=== PATIENT | male | born 1950 | race Caucasian/White ===

== ENCOUNTER 2021-08-18 13:44 | Inpatient (IN) ==
[2021-08-18] MEDS ORDERED: Ondansetron 4 MG/2 ML VIAL IVP PRN (18:17)
[2021-08-18] MEDS ORDERED: Acetaminophen 325 MG TABLET PO PRN (18:17)
[2021-08-18] MEDS ORDERED: Naloxone 0.4 MG/ML INJ IVP PRN (18:17)
[2021-08-18] MEDS: 0.9 % Sodium Chloride 1,000 ML IVC SCH (21:53)
[2021-08-18] MEDS: Ipratropium/Albuterol Neb 3 ML IH SCH (22:00)
[2021-08-18 22:23] LABS: Bilirubin,Urine Negative (Negative); Blood,Urine Large (Negative); Clarity,Urine Clear (Clear); Color,Urine Light-Yellow (Yellow); Glucose,Urine (UA) Normal (Normal); Ketones,Urine 40 mg/dL (Negative); Leukocyte Esterase,Urine Negative (Negative); Mucus,Urine Few per lpf (None-Few); Nitrite,Urine Negative (Negative); PH,Urine 5.5 pH Units (5.0-8.0); Protein,Urine 30 mg/dL (Neg-Trace); Specific Gravity,Urine > 1.030 (1.010-1.025); Squamous Epithelial Cell,Urine Few per hpf (None-Few); Transitional Epi Cells,Urine Few per hpf (None-Few); Urobilinogen,Urine Normal (Normal); WBC,Urine 0-3 per hpf (0-3)
[2021-08-18 22:44] LABS: Magnesium 1.9 mg/dL (1.6-2.6); Phosphorous 2.1 mg/dL (2.7-4.5)
[2021-08-18 22:46] LABS: Troponin I < 0.03 ng/mL (< 0.04)
[2021-08-18 23:09] LABS: Folate 7.6 ng/mL (3.0-16.0)
[2021-08-19] MEDS: MethylPREDNISolone 40 MG/ML VIAL IVP SCH ×3 (00:49→17:18)
[2021-08-19] MEDS: Piperacillin/Tazobactam 3.375 GM in 0.9 % Sodium Chloride Mini Bag 100 ML IVPB SCH ×3 (00:49→16:20)
[2021-08-19] MEDS: Ipratropium/Albuterol Neb 3 ML IH SCH ×4 (03:55→20:38)
[2021-08-19 04:58] LABS: Eosinophils % 0.1 %; Hemoglobin 7.6 g/dL (12.9-16.9)
[2021-08-19 05:00] LABS: Basophils % 0.1 %; Hematocrit 25.2 % (37.5-50.1); Immature Granulocytes % 0.4 % (0-4); Immature Platelets 4.4 % (1.1-6.1); Lymphocytes # 0.8 K/mcL (0.6-4.6); Lymphocytes % 9.7 %; Mean Corpuscular HGB Conc 30.2 g/dL (31.6-35.5); Mean Corpuscular Hemoglobin 22.2 pg (28.0-33.3); Mean Corpuscular Volume 73.7 fL (83.0-100.0); Mean Platelet Volume 10.9 fL (9.4-12.4); Monocytes # 0.1 K/mcL (0.0-1.3); Monocytes % 1.7 %; Neutrophils # 7.1 K/mcL (1.6-8.9); Platelet Count 185 K/mcL (140-400); Red Blood Count 3.42 M/mcL (4.19-5.50); White Blood Count 8.1 K/mcL (4.3-11.1)
[2021-08-19 05:02] LABS: Platelet Estimate Normal (Normal)
[2021-08-19 05:03] LABS: Large Platelets Present (Not Present)
[2021-08-19 05:20] LABS: Alanine Aminotransferase 6 Units/L (7-52); Albumin 2.7 g/dL (3.5-5.7); Albumin/Globulin Ratio 0.9 (1.1-2.2); Alkaline Phosphatase 43 Units/L (34-104); Aspartate Amino Transferase 15 Units/L (13-39); BUN/Creatinine Ratio 37 (6-26); Bilirubin,Total 0.3 mg/dL (0.3-1.0); Blood Urea Nitrogen 15 mg/dL (8-23); Calcium 7.8 mg/dL (8.6-10.3); Carbon Dioxide 23 mEq/L (23-29); Chloride 107 mEq/L (98-107); Globulin 3.1 g/dL (2.4-3.5); Glucose 66 mg/dL (70-105); Osmolality,Calculated 291 (280-300); Potassium 3.3 mEq/L (3.5-5.1); Sodium 141 mEq/L (136-145); Total Protein 5.8 g/dL (6.4-8.9); eGFR For African Americans > 60 (> 60); eGFR For Non-African Americans > 60 (> 60)
[2021-08-19] MEDS ORDERED: *HR* Dextrose 50 % in Water (Syg) 50 ML SYRINGE IVP PRN (05:48)
[2021-08-19] MEDS ORDERED: Dextrose Gel 15 GM/37.5 ML TUBE PO PRN ×2 (05:48)
[2021-08-19] MEDS ORDERED: D5% in Water 1,000 ML IVC PRN (05:48)
[2021-08-19] MEDS: *HR* Heparin 5,000 UNIT/ML VIAL SQ SCH ×2 (06:04→17:18)
[2021-08-19] MEDS ORDERED: Potassium Phosphate 44 MEQ in 0.9 % Sodium Chloride 250 ML IVPB ONE (07:10)
[2021-08-19] MEDS: Nicotine 21 MG PATCH.TD24 TD SCH (09:52)
[2021-08-19] MEDS: Pantoprazole 40 MG VIAL IVP SCH (09:53)
[2021-08-19 11:36] LABS: Lipase 7 Units/L (11-82)
[2021-08-19] MEDS: 0.9 % Sodium Chloride 1,000 ML IVC SCH (13:35)
[2021-08-19] MEDS ORDERED: Cyanocobalamin (B-12) 1,000 MCG/ML VIAL SQ ONE (14:31)
[2021-08-20] MEDS: Piperacillin/Tazobactam 3.375 GM in 0.9 % Sodium Chloride Mini Bag 100 ML IVPB SCH ×3 (00:53→16:49)
[2021-08-20] MEDS: Ipratropium/Albuterol Neb 3 ML IH SCH ×4 (04:12→20:28)
[2021-08-20] MEDS: *HR* Heparin 5,000 UNIT/ML VIAL SQ SCH (05:11)
[2021-08-20] MEDS: MethylPREDNISolone 40 MG/ML VIAL IVP SCH (05:12)
[2021-08-20 05:21] LABS: Basophils % 0.2 %; Monocytes % 3.3 %
[2021-08-20 05:24] LABS: Hematocrit 22.2 % (37.5-50.1); Hemoglobin 6.7 g/dL (12.9-16.9); Immature Granulocytes % 0.7 % (0-4); Immature Platelets 5.1 % (1.1-6.1); Lymphocytes # 1.4 K/mcL (0.6-4.6); Lymphocytes % 16.5 %; Mean Corpuscular HGB Conc 30.2 g/dL (31.6-35.5); Monocytes # 0.3 K/mcL (0.0-1.3); Platelet Count 194 K/mcL (140-400); Red Blood Count 3.04 M/mcL (4.19-5.50); Red Cell Distribution Width 19.1 % (11.5-14.5); Segmented Neutrophils % 79.3 %; White Blood Count 8.3 K/mcL (4.3-11.1)
[2021-08-20 05:29] LABS: Neutrophils # 6.6 K/mcL (1.6-8.9)
[2021-08-20 05:38] LABS: BUN/Creatinine Ratio 38 (6-26); Blood Urea Nitrogen 20 mg/dL (8-23); Carbon Dioxide 27 mEq/L (23-29); Chloride 111 mEq/L (98-107); Glucose 179 mg/dL (70-105); Osmolality,Calculated 305 (280-300); Potassium 3.3 mEq/L (3.5-5.1); Sodium 144 mEq/L (136-145); eGFR For African Americans > 60 (> 60); eGFR For Non-African Americans > 60 (> 60)
[2021-08-20 05:45] LABS: Anisocytosis 1+ (Not Present); Microcytosis Present (Not Present); Poikilocytosis 1+ (Not Present)
[2021-08-20 05:46] LABS: Platelet Estimate Normal (Normal)
[2021-08-20] MEDS ORDERED: Potassium Phosphate 44 MEQ in 0.9 % Sodium Chloride 250 ML IVPB ONE (07:07)
[2021-08-20] MEDS ORDERED: 0.9 % Sodium Chloride 250 ML IVC SCH (07:15)
[2021-08-20] MEDS: Nicotine 21 MG PATCH.TD24 TD SCH (10:44)
[2021-08-20] MEDS: Pantoprazole 40 MG VIAL IVP SCH ×2 (10:44→18:56)
[2021-08-20 14:22] LABS: Transferrin 170 mg/dL (200-400)
[2021-08-20 19:04] LABS: Hematocrit 27.9 % (37.5-50.1); Hemoglobin 8.4 g/dL (12.9-16.9)
[2021-08-20 19:21] LABS: Iron 12 mcg/dL (65-175)
[2021-08-21] MEDS: Piperacillin/Tazobactam 3.375 GM in 0.9 % Sodium Chloride Mini Bag 100 ML IVPB SCH ×2 (00:12→07:49)
[2021-08-21] MEDS ORDERED: Hyaluronidase 200 UNIT in 0.9 % Sodium Chloride 10 ML SQ ONE (00:16)
[2021-08-21] MEDS: Ipratropium/Albuterol Neb 3 ML IH SCH ×3 (04:15→16:39)
[2021-08-21] MEDS: Pantoprazole 40 MG VIAL IVP SCH (06:02)
[2021-08-21 06:42] LABS: Basophils % 0.2 %; Hematocrit 27.5 % (37.5-50.1); Hemoglobin 8.6 g/dL (12.9-16.9); Immature Granulocytes % 0.9 % (0-4); Lymphocytes # 1.9 K/mcL (0.6-4.6); Lymphocytes % 13.3 %; Mean Corpuscular HGB Conc 31.3 g/dL (31.6-35.5); Mean Corpuscular Hemoglobin 23.8 pg (28.0-33.3); Mean Corpuscular Volume 76.2 fL (83.0-100.0); Mean Platelet Volume 10.1 fL (9.4-12.4); Monocytes # 0.7 K/mcL (0.0-1.3); Platelet Count 204 K/mcL (140-400); Red Blood Count 3.61 M/mcL (4.19-5.50); Segmented Neutrophils % 80.6 %
[2021-08-21 06:43] LABS: Neutrophils # 11.4 K/mcL (1.6-8.9); White Blood Count 14.1 K/mcL (4.3-11.1)
[2021-08-21 07:19] LABS: BUN/Creatinine Ratio 33 (6-26); Blood Urea Nitrogen 16 mg/dL (8-23); Calcium 8.1 mg/dL (8.6-10.3); Carbon Dioxide 31 mEq/L (23-29); Chloride 108 mEq/L (98-107); Glucose 96 mg/dL (70-105); Osmolality,Calculated 295 (280-300); Potassium 3.8 mEq/L (3.5-5.1); Sodium 142 mEq/L (136-145); eGFR For African Americans > 60 (> 60); eGFR For Non-African Americans > 60 (> 60)
[2021-08-21] MEDS: Nicotine 21 MG PATCH.TD24 TD SCH (07:48)
[2021-08-21] MEDS ORDERED: predniSONE 20 MG TABLET PO SCH (09:00)
[2021-08-21 13:25] LABS: Bilirubin,Urine Negative (Negative); Blood,Urine Trace (Negative); Clarity,Urine Clear (Clear); Color,Urine Colorless (Yellow); Glucose,Urine (UA) Normal (Normal); Ketones,Urine Negative (Negative); Leukocyte Esterase,Urine Negative (Negative); Mucus,Urine Few per lpf (None-Few); Nitrite,Urine Negative (Negative); Protein,Urine Trace mg/dL (Neg-Trace); RBC,Urine 0-3 per hpf (0-3); Specific Gravity,Urine 1.023 (1.010-1.025); Urobilinogen,Urine Normal (Normal); WBC,Urine 0-3 per hpf (0-3)
[2021-08-21 15:43] VITALS: BP 167/87; PULSE 84; TEMP 98.1
[2021-08-21 16:53] VITALS: O2SAT 94
[2021-08-21] MEDS ORDERED: Sennosides/Docusate Sodium TABLET PO SCH (21:00)
[2021-08-23 07:24] LABS: % Iron Saturation 5 % (20-55); Transferrin 169 mg/dL (200-400)
== END 2021-08-21 19:18 | disposition hospice, home (50) | DRG 193 ==
LOC: 3ANU
PROVIDERS: ADMIT Internal Medicine; ATTEND Internal Medicine